=== PATIENT | female | born 1935 | race Caucasian/White ===

== ENCOUNTER 2017-01-11 17:23 | Emergency (ER) | payer OTHER, BC ==
[~2017-01-11] VITALS: Ht 160 cm; Wt 73.2 kg
[~2017-01-11 17:23] MED LIST: ALBU1AER9 INH; AMB10 PO; CLON0.5T3 PO; DFL100 PO; HYDR-4079 PO; LCTX PO; PRD20 PO; TIOTCAP INH
[2017-01-11 17:25] VITALS: Ht 160 cm; Wt 73.2 kg
[2017-01-11] MEDS ORDERED: MIDAZOLAM HCL 1 MG/ML 2ML VIAL ONE (17:26)
[2017-01-11] MEDS ORDERED: NITROGLYCERIN/D5W 100MCG/ML 20ML SYR ONE (17:26)
[2017-01-11] MEDS ORDERED: NiCARDipine HCL INJ 2.5 MG/ML 10 ML AMP ONE (17:26)
[2017-01-11] MEDS ORDERED: HEPARIN SOD (PORCINE) 1000 UNIT/ML 10 ML VIAL ONE (17:26)
[2017-01-11] MEDS ORDERED: FENTANYL CITRATE INJ 50 MCG/1 ML 2 ML VIAL ONE ×2 (17:26→19:43)
[2017-01-11] MEDS ORDERED: SODIUM CHLORIDE 0.9% 1000ML 1,000 ML IV STA (17:33)
[2017-01-11] MEDS ORDERED: SODIUM CHLORIDE 0.9% 1000ML 1,000 ML IV ONE (17:33)
[2017-01-11 17:35] VITALS: O2SAT 98
[2017-01-11] MEDS ORDERED: MoRPHine SULFATE 2 MG/ML CARP ONE (17:35)
[2017-01-11] MEDS ORDERED: MoRPHine SULFATE 2 MG/ML CARP IV STA (17:37)
[2017-01-11 17:41] LABS: BASO % 0.2 %; BASO ABS # 0.02 K/uL (0-0.2); COMPLETE YES; EOS % 0.3 %; HEMATOCRIT 45.5 % (37-47); IG% 0.3 %; LYMPH % 22.8 %; MEAN CELL VOLUME 81.3 fL (80-100); MEAN CORPUSCULAR HGB CONC 34.5 g/dl (32-36); MEAN PLATELET VOLUME 11.4 fL (7.4-10.4); MONO % 2.9 %; NEUT % 73.5 %; PLATELET COUNT 314 K/uL (130-400); WHITE BLOOD COUNT 10.53 K/uL (4.8-10.8)
[2017-01-11 17:53] LABS: PARTIAL THROMBOPLASTIN RATIO 0.9; PROTHROMBIN TIME (PATIENT) 10.4 SECONDS (9.0-12.0)
--- NOTE | 2017-01-11 17:57 | DIAGNOSTIC IMAGING REPORT ---
CHEST ONE VIEW PORTABLE CLINICAL HISTORY: Chest pain. Heart alert. COMPARISON STUDY: Chest radiograph May 28, 2016. FINDINGS: A left subclavian Lshxsk-t-Fxys and IVC filter are noted. Mild cardiomegaly is noted. There is no pneumothorax or pleural effusion. There is no evidence of pulmonary edema. Minimal bibasilar opacities are noted. IMPRESSION: 1. No evidence of pulmonary edema. 2. Mild cardiomegaly. 3. Mild bibasilar opacities. Atelectasis is favored over an infectious process. Electronically signed by: Humble Valle M.D. 01/11/2017 5:56 PM Dictated Date/Time: 01/11/2017 5:53 PM
[2017-01-11] MEDS ORDERED: NOREPINEPHRINE BITARTRATE 1 MG/ML 4 ML VIAL ONE (18:02)
[2017-01-11 18:03] LABS: BUN/CREATININE RATIO 24.6 (10-20); CALCIUM 10.3 mg/dl (8.5-10.1); CREATININE 1.6 mg/dl (0.60-1.20); POTASSIUM 4.6 mmol/L (3.5-5.1)
[2017-01-11 18:10] LABS: CKMB/CK RATIO 7.1 (0-3.0)
--- NOTE | 2017-01-11 18:28 | EMERGENCY ROOM VISIT NOTE ---
History Report prepared by Emmy: Mally Burk Under the Supervision of: Dr. Jordan Mckenna M.D. First contact with patient: 17:17 Chief Complaint: HEART ALERT Stated Complaint: HEART ALERT History of Present Illness The patient is a 78 year old female who presents to the Emergency Room via EMS with complaints of left sided chest pain starting this morning. The patient had a sudden onset of her pain. She also reports nausea. She currently reports a pain intensity of 8/10. She received 4 baby aspirin and 4mg IV Zofran in route to the Emergency Room. She denies fevers, chills, shortness of breath, or any other complaints. She has had a cough for the past few days. She denies any history of heart disease. She has a history of a blood clot but is no longer on any blood thinners. She also has a history of breast cancer. She denies any history of hypertension, diabetes, and high cholesterol. Source of History: patient Onset: this morning Position: chest (left) Symptom Intensity: 8/10 Modifying Factors (Relieving): other (4 baby aspirin and 4 Zofran ) Associated Symptoms: No SOB, No chills, No fevers Review of Systems See HPI for pertinent positives & negatives. A total of 10 systems reviewed and were otherwise negative. Past Medical & Surgical Medical Problems: (1) Colitis (2) EMPHYSEMA NEC (3) HX OF BREAST MALIGNANCY (4) HX OF COLONIC MALIGNANCY (5) HX-VENOUS THROMBOSIS&EMBOLISM (6) HYPERLIPIDEMIA NEC/NOS (7) HYPERTENSION NOS (8) HYPOTHYROIDISM NOS Old medical records were reviewed. Nurse's notes were reviewed and I agree with. Family History No pertinent family history Social History Alcohol Use: none Drug Use: none Marital Status: Occupation Status: retired Current/Historical Medications Scheduled Clonazepam (Klonopin), 0.5 MG PO HS Fluconazole (Fluconazole), 100 MG PO QAM Lactobacillus Acidophilus (Floranex), 4 TAB PO BID Prednisone (Prednisone), 60 MG PO QAM Tiotropium Tracy (Spiriva Handihaler), 1 CAP INH DAILY Zolpidem Tartrate (Ambien *), 10 MG PO HS Scheduled PRN Albuterol (Proair Hfa), 2 PUFFS INH Q4H PRN for SOB/Wheezing Hydrocodone/Acetaminophen 10MG/325MG ([place] 10MG/325MG), 1-2 TAB PO Q4H PRN for moderate-severe pain Allergies Coded Allergies: Beta Adrenergic Blockers (Verified Allergy, Severe, "CAN'T BREATH", CHEST PAIN, 05/28/16) Metoprolol (Verified Allergy, Unknown, TOPROL XL, 05/28/16) Diltiazem (Verified Adverse Reaction, Severe, SOB, 05/28/16) Doxycycline (Verified Adverse Reaction, Intermediate, emesis, 05/28/16) Physical Exam Vital Signs Date Time Temp Pulse Resp B/P Pulse Ox O2 Delivery O2 Flow Rate FiO2 01/11/17 17:41 65/53 01/11/17 17:35 103 22 77/61 98 Room Air 01/11/17 17:31 108 01/11/17 17:25 95 Room Air 01/11/17 17:25 96 Room Air 01/11/17 17:25 110 20 99/63 95 Room Air Physical Exam General: Diaphoretic, somewhat pale, older female complaining of chest pain, in no respiratory distress. HEENT: Normal cephalic atraumatic. Pupils are equal round and reactive to light. Sclerae anicteric. Extraocular movements are intact. Oropharynx is pink with moist mucous membranes. No swelling of the mouth lips or tongue. Neck: Supple with a midline trachea. No meningeal signs or stiffness, no JVD or bruits. No Stridor. Chest: Clear to auscultation bilaterally. No wheezes or rhonchi. No increased work of breathing. A port in the left chest Heart: Tachycardic rate with occasional PVC. Abdomen: Soft nontender, nondistended without rebound guarding or rigidity. Extremities: No cyanosis clubbing or edema. No calf tenderness or assymetry Spine/Back. Non tender to palpation. No CVA tenderness Skin: Good turgor without rashes. Neurologic exam: Cranial nerves two through 12 are intact. Motor and sensation are intact and symmetrical throughout. Medical Decision & Procedures ER Provider Diagnostic Interpretation: X-ray results as stated below per interpretation by me and the radiologist: CHEST ONE VIEW PORTABLE CLINICAL HISTORY: Chest pain. Heart alert. COMPARISON STUDY: Chest radiograph May 28, 2016. FINDINGS: A left subclavian Lhwilo-y-Bhjs and IVC filter are noted. Mild cardiomegaly is noted. There is no pneumothorax or pleural effusion. There is no evidence of pulmonary edema. Minimal bibasilar opacities are noted. IMPRESSION: 1. No evidence of pulmonary edema. 2. Mild cardiomegaly. 3. Mild bibasilar opacities. Atelectasis is favored over an infectious process. Electronically signed by: Humble Valle M.D. 01/11/2017 5:56 PM Dictated Date/Time: 01/11/2017 5:53 PM Laboratory Results 01/11/17 17:02 Red Blood Count 5.60, Mean Corpuscular Volume 81.3, Mean Corpuscular Hemoglobin 28.0, Mean Corpuscular Hemoglobin Concent 34.5, Mean Platelet Volume 11.4, Neutrophils (%) (Auto) 73.5, Lymphocytes (%) (Auto) 22.8, Monocytes (%) (Auto) 2.9, Eosinophils (%) (Auto) 0.3, Basophils (%) (Auto) 0.2, Neutrophils # (Auto) 7.74, Lymphocytes # (Auto) 2.40, Monocytes # (Auto) 0.31, Eosinophils # (Auto) 0.03, Basophils # (Auto) 0.02 01/11/17 17:02 Test 01/11/17 17:02 White Blood Count 10.53 K/uL (4.8-10.8) Red Blood Count 5.60 M/uL (4.2-5.4) Hemoglobin 15.7 g/dL (12.0-16.0) Hematocrit 45.5 % (37-47) Mean Corpuscular Volume 81.3 fL (80-100) Mean Corpuscular Hemoglobin 28.0 pg (25-34) Mean Corpuscular Hemoglobin Concent 34.5 g/dl (32-36) Platelet Count 314 K/uL (130-400) Mean Platelet Volume 11.4 fL (7.4-10.4) Neutrophils (%) (Auto) 73.5 % Lymphocytes (%) (Auto) 22.8 % Monocytes (%) (Auto) 2.9 % Eosinophils (%) (Auto) 0.3 % Basophils (%) (Auto) 0.2 % Neutrophils # (Auto) 7.74 K/uL (1.4-6.5) Lymphocytes # (Auto) 2.40 K/uL (1.2-3.4) Monocytes # (Auto) 0.31 K/uL (0.11-0.59) Eosinophils # (Auto) 0.03 K/uL (0-0.5) Basophils # (Auto) 0.02 K/uL (0-0.2) RDW Standard Deviation 42.6 fL (36.4-46.3) RDW Coefficient of Variation 14.4 % (11.5-14.5) Immature Granulocyte % (Auto) 0.3 % Immature Granulocyte # (Auto) 0.03 K/uL (0.00-0.02) Prothrombin Time 10.4 SECONDS (9.0-12.0) Prothromb Time International Ratio 1.0 (0.9-1.1) Activated Partial Thromboplast Time 22.8 SECONDS (21.0-31.0) Partial Thromboplastin Ratio 0.9 Anion Gap 17.0 mmol/L (3-11) Est Creatinine Clear Calc Drug Dose 27.3 ml/min Estimated GFR () 35.2 Estimated GFR (Non- 30.3 BUN/Creatinine Ratio 24.6 (10-20) Calcium Level 10.3 mg/dl (8.5-10.1) Total Bilirubin 0.4 mg/dl (0.2-1) Direct Bilirubin 0.1 mg/dl (0-0.2) Aspartate Amino Transf (AST/SGOT) 53 U/L (15-37) Alanine Aminotransferase (ALT/SGPT) 43 U/L (12-78) Alkaline Phosphatase 101 U/L (45-117) Total Creatine Kinase 77 U/L (26-192) Creatine Kinase MB 5.5 ng/ml (0.5-3.6) Creatine Kinase MB Ratio 7.1 (0-3.0) Total Protein 7.9 gm/dl (6.4-8.2) Albumin 3.9 gm/dl (3.4-5.0) Lipase 343 U/L (73-393) Laboratory studies as stated above per my review. Medications Administered Medications (Trade) Dose Ordered Sig/Ally Route Start Time Stop Time Status Last Admin Dose Admin Sodium Chloride 1,000 ml @ 999 mls/hr Q1H1M STAT IV 01/11/17 17:33 01/11/17 18:33 01/11/17 17:23 999 MLS/HR Sodium Chloride (Nss 1000ml) 1,000 ml @ 150 mls/hr Q6H40M ONCE IV 01/11/17 17:33 01/12/17 00:12 01/11/17 17:30 150 MLS/HR Morphine Sulfate (MoRPHine SULFATE INJ) 2 mg STK-MED ONCE .ROUTE 01/11/17 17:35 01/11/17 17:38 DC 01/11/17 17:46 2 MG ECG Indication: chest pain Rate (beats per minute): 109 Rhythm: sinus tachycardia Findings: other (Inferior STEMI) Comparison ECG Date: June 01, 2016 Change: Inferior STEMI is new when compared to June 01, 2016. ED Course 1716: Past medical records reviewed. The patient was evaluated in room A01, and a complete history and physical examination were performed. I discussed the patient's case with Dr. Escalante, accounting analyst with [facility]. 1733: Sodium Chloride 1000 ml @ 150 mls/hr IV, Sodium Chloride 1000 ml @ 999 mls /hr IV 1737: Upon reevaluation, the patient continues to complain of her symptoms. I discussed the results and treatment plan with the patient. She verbalized agreement of the treatment plan. I spoke with Dr. Salas from [facility]. The patient will be evaluated for further management.; Medical Decision Differential diagnosis includes but is not limited to acute RI, CHF, arrhythmia , electrolyte or metabolic abnormalities. This patient comes in as described above. She was placed in room A1. I talked to the paramedics prior to her arrival and they sent him in the EKG. Based on her EKG and symptoms, I was very concerned about an acute RI. I called a heart alert prior to arrival. Her pressure was in the 80s in the field and I recommended that they give her IV fluid bolus and aspirin but do not give nitroglycerin. Based on the location of the RI being inferior, I was worried about an RV infarct which can be preload dependent. Upon arrival to the ER, Dr. Escalante had arrived and was at the bedside as was I. We established a second IV and opened up her fluids she was given 2 mg of morphine IV for pain. chest x- ray does not show any CHF. Dr. Escalante is going take her emergently [facility] for further intervention treatment and evaluation. Her blood pressure did drop down into the 60s to 70s systolic just prior to going to the [facility]. I did open up her fluids and notify the [facility] of her change in status they are going to emergently cath her. Consults Time Called: 1715 Consulting Physician: Dr. Escalante, accounting analyst with [facility] Returned Call: 1717 I discussed the patient's case with Dr. Escalante, accounting analyst with [facility]. Additional Consults: Time Called: 1730 Consulted Physician: Dr. Salsa from [facility] Returned Call: 1737 Additional Comments: I spoke with Dr. Salas from [facility]. Impression Primary Impression: Acute inferior myocardial infarction Critical Care I have personally spent greater than 30 minutes of critical care time in the direct management of this patient. This includes bedside care, interpretation of diagnostic studies, and testing, discussion with consultants, patient, and family members, and other required patient management activities. This 30 minutes is in excess of all separately billable procedures. Scribe Attestation The scribe's documentation has been prepared under my direction and personally reviewed by me in its entirety. I confirm that the note above accurately reflects all work, treatment, procedures, and medical decision making performed by me. Departure Information Dispostion Being Evaluated By Hospitalist Patient Instructions [facility]
[2017-01-11] MEDS ORDERED: PHENYLEPHRINE HCL INJ 10 MG/ML VIAL ONE (18:40)
[2017-01-11] MEDS ORDERED: ONDANSETRON INJ 2 MG/ML 2 ML VIAL ONE ×2 (18:47→18:49)
[2017-01-11] MEDS ORDERED: HEPARIN 25000 UNIT/500 ML D5W ONE (18:49)
[2017-01-11] MEDS ORDERED: EPTIFIBATIDE 2 MG/ML 10 ML VIAL IV ONE (19:11)
[2017-01-11] MEDS ORDERED: EPTIFIBATIDE 0.75 MG/ML 75MG VIAL IV ONE (19:12)
--- NOTE | 2017-01-11 19:46 | Cardiac Catheterization ---
Procedure Note Procedure Date Jan 11, 2017. Pre-Procedure Diagnosis STEMI AUC Score 9 Post-Procedure Diagnosis Severe CAD, Elevated Intracardiac Pressures, Cardiothoracic Finding ( Hyperdynamic left ventricular systolic function) Procedure(s) Performed Coronary Angiography, Left Heart Cath, LV Angiography, Aortography, procedure ( Attempted PTCA distal right coronary artery. The guidewire would not cross the total occlusion.) Scheduling Representative Dr. Escalante Electric Organ Checker(s) Noah Flowers RTKamille Estimated Blood Loss 15 ml Medication(s) Fentanyl, Heparin, Integrilin, Jonathan-Synephrine, Norepinephrine, Versed, Lidocaine 1% For antithrombotic therapy the patient was given intravenous heparin and Integrilin. Therapeutic activated clotting time documented. Because of low systemic pressure she was initially started on intravenous norepinephrine. After performance of left ventricular angiography this was changed to intravenous phenylephrine. Intravenous Zofran was given for nausea. Intravenous Versed and fentanyl for anxiety and analgesia. Summary of Findings Clinical indications: Acute inferior myocardial infarction. No prior history of coronary artery disease. History of dyslipidemia and hypertension. Neither these are currently treated with medications. History of pulmonary embolism, deep venous thrombosis, IVC filter, COPD, vertigo, malignant neoplasm right breast requiring mastectomy, colovesical fistula, cholelithiasis, and diverticulosis. Status post right mastectomy, IVC filter, small-bowel resection , laparoscopic cholecystectomy, bladder surgery, vaginal hysterectomy. Prior history of cigarette smoking. No family history of premature coronary artery disease. The patient developed acute chest discomfort approximately 10:30 a.m. this morning. She did not call for medical help until the late afternoon. EMS performed an electrocardiogram which revealed inferior ST elevations. This electrocardiogram was transmitted to the [facility] Emergency Department. A heart alert was called. She was hypotensive in the field. She was given intravenous fluids. On arrival to the emergency department the repeat echocardiogram showed continued inferior ST elevations. ST depressions V4-V6. No ST elevations V1-V3. She was hypotensive. Given intravenous fluids. She had also been given aspirin by the EMS crew. Following acquisition of informed consent (verbal consent) she was brought to the cardiac catheterization laboratory for emergency cardiac catheterization. The right radial pulse was not palpable. Her chest x-ray revealed no evidence of congestive heart failure. Her exam revealed no evidence of heart failure. She did have oxygen desaturation on nasal cannula oxygen. She was placed on a non- rebreather face mask. Because of persistent hypotension despite intravenous fluids she was started on intravenous norepinephrine. This was subsequently changed to intravenous phenylephrine. An echocardiogram performed in June 2016 revealed no regional wall motion abnormalities. Mild valvular aortic stenosis, trace to mild aortic regurgitation, and mild tricuspid regurgitation. Lower extremity duplex scan October 21, 2015 with no evidence of significant arterial occlusive disease bilaterally. Catheterization site: 6 Macedonian sheath right femoral artery. Catheters: 6 Macedonian JL4 diagnostic catheter. Six Macedonian JR4 guide catheter. This catheter cause marked damping of the pressure waveform. It was switched to a JR4 guide catheter with side holes. Six Macedonian pigtail catheter for left heart catheterization, left ventricular angiography, and aortography. Attempted PTCA equipment: 6 Macedonian JR4 guide catheter with side holes,Rousseau guidewire, whisper guidewire, and a luge guidewire. 2.0 x 12 millimeter balloon dilatation catheter. Protocol: Left coronary angiography was 1st performed. Right coronary angiography was then performed with the JR4 guide catheter. The guide catheter was then exchanged for the JR4 guide catheter with side holes. It was 1st attempted to cross the distal RCA occlusion with the Rousseau guidewire. This wire would not cross the occlusion. The guidewire was exchanged for the whisper guidewire and then luge guidewire. These guidewires would also not cross the occlusion. The interventional equipment was withdrawn. Follow-up right coronary angiography was then performed. Left heart catheterization, left ventricular angiography, and aortography were performed. The arterial sheath was then secured in place. Findings: Fluoroscopy revealed coronary calcifications. The coronary circulation was right dominant. The right coronary artery was a small caliber vessel. 30 percent proximal and 50 percent mid RCA stenoses. Total distal RCA stenosis. The distal RCA had the appearance of a thrombus being present in it. Following attempted PTCA and passage of a guidewire there is no evidence of dissection or perforation. All the left main coronary artery was a medium caliber vessel giving rise to small caliber left anterior descending and left circumflex coronary arteries. The left main had no obstructive disease. The early mid left circumflex had a long 70 percent stenosis. The mid circumflex then gave rise to a long small caliber 1st marginal artery. This marginal had sequential 50 and 75 percent mid segment stenoses. The circumflex then gave rise to a long small caliber 2nd marginal artery which had a 30 percent mid segment stenosis. The very proximal LAD had a 30 percent stenosis. The proximal LAD gave rise to a very small caliber 1st diagonal artery which had a 90 percent ostial stenosis. The mid LAD had a long area of diffuse atherosclerotic disease with 70 90 percent luminal diameter narrowing. The mid LAD gave rise to a bifurcating small caliber 2nd diagonal artery. This vessel had a 30 percent proximal stenosis. Following the long mid stenosis in the LAD there was a small segment which appeared to be of normal diameter. This was then followed by a 95 percent stenosis. GÉNESIS 2 flow was present into the LAD diagonal and the distal LAD. The distal LAD wrapped around the apex of the left ventricle as a small caliber vessel. Left to right collateral flow was present to the right posterior descending artery. Left ventricular angiography performed from the 30 degree right anterior oblique projection revealed the posterior basal segment to be dyskinetic. The diaphragmatic segment. The hypokinetic. The apex, anterolateral, and anterior basal segments were hyperdynamic. No mitral regurgitation noted. Calculated left ventricular ejection fraction 58 percent. Left ventricular angiography performed from the 40 degree OCCITAN projection revealed the septum, apex, and posterolateral segments to be hyperdynamic. Aortography revealed 1+ aortic regurgitation. Plan: The patient did not have ST elevations in V1-V3. Although there was decreased flow in the distal LAD it was felt best not to attempt intervention to this vessel secondary to the diffuse disease in the mid LAD and the very small caliber of the lumen. Additionally, the anterior wall and apex were hyperdynamic. multiple attempts were made at crossing the distal RCA occlusion with multiple guidewires. These attempts were unsuccessful. If she had decreased LV systolic function it was planned to place an intra-aortic balloon pump. As her LV systolic function was normal it was felt that the risk of an intra-aortic balloon pump far outweighed any benefit. At the completion of procedure she was on intravenous heparin, intravenous Integrilin, and intravenous phenylephrine. She was also given intravenous fluids throughout the procedure. She maintained adequate oxygenation with supplemental oxygen. She is being transferred to the [facility] by helicopter transport for tertiary cardiac care. Complications: None. Hemodynamics Rest Ao: 85/64/73 mm Hg. Final Ao: 78/60/68 mm Hg. LV: 100/29 mm Hg. Recommendations management recommendations (Transfer to [facility] for tertiary cardiac care. Consideration for CABG surgery.) Specimens None Radiation Exposure (mGy) 1257 Contrast (mls) 140 ml Visipaque Fluids (cc crystalloids) 160 ml Drains none Anesthesia Intravenous Versed and fentanyl. Lidocaine 1 percent for local anesthesia. Procedural Complication(s) None Disposition Transfer to [facility] for tertiary cardiac care. [facility] Data Cardiac Status Clinical evaluation leading to the procedure CAD Presntation: STEMI Anginal Classification: CCS IV Heart Failure: No Cardiogenic Shock w/in 24Hrs: Yes Cardiac Arrest w/in 24Hrs: No Imaging studies past 6 months: No Stress studies past 6 months: No Standard Exercise Stress Test: No Stress Echocardiogram: No Stress Testing w/SPECT MPI: No Cardiac CTA: No Coronary Anatomy Dominant: Right Left Main (% Stenosis): Normal LAD (% Stenosis): Proximal (30), Mid (long 70-90, 95) D1 (% Stenosis): Ostial (90) D2 (% Stenosis): Proximal (30) Circumflex (% Stenosis): Mid (long 70) OM1 (% Stenosis): Mid (50,75) OM2 (% Stenosis): Mid (30) RCA (% Stenosis): Proximal (30), Mid (50), Distal (100) Left Ventricular Angiography EF (%): 58 Wall Motion: Inferior (Posterobasal dyskinesis), Apical (Hyperdynamic), Anterior (Hyperdynamic) Mitral Regurgitation: None Aortography Aortic Regurgitation: 1+ Diagnostic Physician's Name: Huang Escalante M.D. Status: Emergency Closure Device Percutaneous Entry Location: Femoral Recommendations: CABG, management recommendations (Transfer to [facility] for tertiary cardiac care) Intraprocedure Events Significant Dissection: No Perforation: No
[2017-01-11 20:01] VITALS: BP 101/60; PULSE 101; O2SAT 95
--- NOTE | 2017-01-12 00:51 | DISCHARGE SUMMARY ---
DATE OF TRANSFER: 01/11/2017 ACCEPTING FACILITY: [facility]. ACCEPTING PHYSICIAN: Dr. Garcia. TRANSFERRING PHYSICIAN: Huang Escalante M.D. TRANSFER DIAGNOSES: 1. Acute inferior myocardial infarction. 2. Severe 3-vessel coronary artery disease. 3. Cardiogenic shock. 4. Elevated left ventricular end diastolic pressure. 5. History of untreated hypertension and dyslipidemia. 6. History of multiple pulmonary emboli. Status post inferior vena cava filter. 7. In-dwelling venous port catheter, left subclavian vein. 8. Status post right mastectomy for breast cancer. 9. Status post bowel resection. 10. Status post cholecystectomy. 11. Chronic obstructive pulmonary disease. 12. History of deep venous thrombosis. TRANSFER CONDITION: Critical. MODE OF TRANSPORT: Helicopter transport. TRANSFER MEDICATIONS: Intravenous phenylephrine, heparin, and Integrilin. Normal saline infusion. HISTORY AND HOSPITAL COURSE: The patient had a sudden onset of chest pain the morning of January 11. She did not call for medical assistance until the early afternoon of January 11. Electrocardiogram performed by emergency medical services revealed an acute inferior myocardial infarction. Based on his electrocardiogram, a heart alert was called. She was hypotensive in the field with systolic pressures less than 80. She was given intravenous fluids in the field. She was also given aspirin. On arrival to [facility] Emergency Department, she was still complaining of severe chest pain. Electrocardiogram revealed inferior ST elevations. ST depressions in V4-V6. No ST elevations in V1-V3. She was given normal saline boluses in the Emergency Department. She was then brought to the cardiac catheterization laboratory for emergency cardiac catheterization and possible coronary intervention. PHYSICAL EXAMINATION: GENERAL: Exam in the Emergency Department revealed her to be in distress. She was complaining of chest pain. VITAL SIGNS: Pulse was in the low 100s. Monitor revealed sinus tachycardia. No ventricular ectopy or atrioventricular block noted. Her initial blood pressure was 99/63. It then decreased to a low of 65/53. It improved with the administration of intravenous fluids. NECK: She had no jugular venous distention. LUNGS: Lung exam was normal. CARDIAC: Cardiac exam revealed increased heart rate. Regular rhythm. No murmur, S3, or rub heard. ABDOMEN: Soft. Nontender. No palpable masses or organomegaly. EXTREMITIES: No pretibial edema. The femoral pulses were palpable. The radial, dorsalis pedis, and posterior pulses were not palpable. NEUROLOGIC: Alert and oriented x3. Motor grossly intact. PSYCHIATRIC: Affect normal. The chest x-ray performed in the Emergency Department and reviewed by me showed no evidence of heart failure. Normal heart size. Her electrocardiogram revealed sinus tachycardia, inferior Q-waves, ST elevations in leads II, 3, aVF, ST depression 1 and aVL. On arrival to the catheterization laboratory, she was still complaining of severe chest pain. A 6-Thai sheath was placed percutaneously in the right femoral artery. Fluoroscopy revealed coronary calcifications. The coronary circulation was right dominant. 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 There was appearance of thrombus in the distal RCA before this total occlusion. There was clih-rk-fyyolvil proximal and mid-RCA stenoses. The LAD had a long 70% 90% mid-segment stenosis. This was then followed by a small segment of, what appeared to be, normal artery. This was then followed by a 95% stenosis. GÉNESIS 2 flow into the distal LAD. The left circumflex had a long 70% stenosis. There was collateral flow from the left coronary artery to the right posterior descending artery. It was visualized as a very small caliber vessel. PTCA was then planned for the RCA. However, multiple guidewires would not cross the distal RCA occlusion. It had the sensation of a total chronic occlusion. Followup angiography revealed no evidence of dissection or perforation. Left ventricular angiography was then performed. It revealed hyperdynamic wall motion in the anterior wall and apex. The inferior wall appeared to be hypokinetic except for the posterobasal segment, which was dyskinetic. The calculated left ventricular ejection fraction was 58%. Aortography revealed 1+ aortic regurgitation. There was no significant gradient across the aortic valve. It was felt best not to attempt any intervention to the LAD. She had hyperdynamic wall motion in the distribution of the LAD. She had no ST segment elevations in leads V1-V6 on electrocardiogram performed in the Emergency Department. At the completion of procedure, the patient's chest discomfort had decreased in intensity. During the procedure, she was hypotensive. She was first treated with intravenous norepinephrine. This was then changed to intravenous phenylephrine after documentation of the hyperdynamic anterior and apical wall motion of the left ventricle on LV angiography. She was also given boluses of normal saline solution. Prior to attempted intervention, she was started on intravenous heparin and Integrilin. She remained on intravenous heparin and Integrilin. Intravenous Zofran was given for nausea. During the procedure, she was treated with a nonrebreather face mask because of low oxygen saturations. At the completion of procedure, she was oxygenating well and the face mask was changed to a nasal cannula. IVF and phenylephrine for the hypotension. The patient is being transferred to [facility] for tertiary cardiac care. Consideration for CABG surgery. 90 minutes of critical care time was spent by me in management of this patient independent of the procedure. TONY
== END 2017-01-11 17:50 | disposition home or self-care (01) ==
LOC: EDBD 17:23 → C.ED 17:25
DX: I21.19 ST elevation (STEMI) myocardial infarction involving other coronary artery of inferior wall (principal); I25.10 Atherosclerotic heart disease of native coronary artery without angina pectoris; E78.5 Hyperlipidemia, unspecified; E03.9 Hypothyroidism, unspecified; I10 Essential (primary) hypertension; Z85.3 Personal history of malignant neoplasm of breast; Z85.038 Personal history of other malignant neoplasm of large intestine